=== PATIENT | female | born 1945 | race Two or more races ===

== ENCOUNTER 2017-09-11 08:10 | Outpatient (CLI) | payer OTHER ==
[~2017-09-11 08:10] MED LIST: GABAPENTIN400 MG PO; JENTADUETO XR1 EACH PO; LEVO-T100 MCG PO; LOSARTAN POTASS25 MG PO; NABUMETONE500 MG PO; PERCOCET 5-3251 EACH PO; SIMVASTATIN40 MG PO; ZETIA10 MG PO
== END 2017-09-11 08:18 | disposition home or self-care (01) ==
LOC: SONOGRAMA 08:10
DX: M25.561 Pain in right knee (principal)

== ENCOUNTER 2019-07-01 08:20 | Day surgery (SDC) | payer OTHER | END 2019-07-01 13:55 | disposition home or self-care (01) | LOC: AMB-ENDOS 08:20 | DX: K63.5 Polyp of colon (principal); K57.30 Diverticulosis of large intestine without perforation or abscess without bleeding ==